=== PATIENT | female | born 1995 | race Caucasian/White ===

== ENCOUNTER 2016-02-10 00:40 | Emergency (ER) | payer OTHER ==
[~2016-02-10] VITALS: Ht 152.4 cm; Wt 53.0 kg
[~2016-02-10 00:40] MED LIST: ADVIL,NUPRIN,M200 MG PO; ATARAX,VISTARIL25 MG PO; AUGMENTIN600 MG/5 M PO; AZITHROMYCIN500 M1 PO; BACTRIM,SEPT1 TABLET PO; CIPRO500 MG PO; CLINDAMYCIN HC300 MG PO; CLOTRIM ANTIFUN15 GM TP; DEPO PROVERA; DEPO-PROVER150 MG/ML IM; ERYTHROMYCIN O3.5 GM BOTH EYES; EXCEDRIN MIGRA1 EAC2 PO; FAMOTIDINE20 MG PO; FLEXERIL10 MG PO; HUMULIN R100 UNITS/ SC; IBUPROFEN600 MG PO; JUNEL FE 1/21 TABLET PO; KEFLEX500 MG PO; LANTUS 10100 UNITS/ SC; LANTUS 3 M100 UNITS1; LANTUS 3 M100 UNITS1 SC; LEVEMIR100 UNIT/2 SC; LOESTRIN 1/21 TABLET PO; MOBIC15 MG PO; MOTRIN600 MG PO; NAPROSYN500 MG PO; NOVOLOG 10100 UNITS/ SC; NOVOLOG PE100 UNITS/; NOVOLOG PE100 UNITS/ SC; OMEPRAZOLE40 M1 PO; PHENAZOPYRIDIN200 MG PO; PREDNISONE10 MG PO; PREDNISONE20 MG PO; PROMETHAZINE HC25 M1 PO; RANITIDINE HCL150 MG PO; SERTRALINE HCL50 MG PO; SOFTCLIX1 EAC2 MC; TYLENOL EXTRA500 MG PO; ULTRAM50 MG PO; VENTOLIN HFA18 GM IH; ZANTAC150 MG PO; ZOFRAN ODT4 MG PO; ZOFRAN ODT8 MG PO; ZOFRAN4 MG PO
[2016-02-10 00:43] VITALS: BP 107/83
== END 2016-02-10 05:45 | disposition left against medical advice (07) ==
LOC: EME 00:40
DX: R06.02 Shortness of breath (principal); Z53.21 Procedure and treatment not carried out due to patient leaving prior to being seen by health care provider; R51 Headache; E10.9 Type 1 diabetes mellitus without complications; J45.909 Unspecified asthma, uncomplicated; K21.9 Gastro-esophageal reflux disease without esophagitis
CPT/HCPCS: 71020

== ENCOUNTER 2016-03-10 21:48 | Emergency (ER) | payer OTHER ==
[~2016-03-10] VITALS: Ht 160 cm; Wt 63.2 kg
[2016-03-10 22:10] LABS: POINT-OF-CARE METER ID UU13113778
[2016-03-10 22:14] LABS: ADD MIUA? YES; BILIRUBIN NEGATIVE; BLOOD NEGATIVE; COLOR YELLOW ((YELLOW)); GLUCOSE (STRIP) NEGATIVE; KETONES 15; LEUKOCYTES NEGATIVE; NITRITE NEGATIVE; PH, URINE 6.5 (5-8); PROTEIN (STRIP) TRACE; SPECIFIC GRAVITY 1.026 (1.000-1.030); UROBILINOGEN 0.2 MG/DL (0.2-1.0)
[2016-03-10 22:22] LABS: HEMATOCRIT 41.7 % (36.0-46.0); MCH 32.7 PG (29.0-34.0); MCHC 34.5 G/DL (30.0-36.0); MCV 94.8 FL (83-99); MEAN PLAT.VOLUME 9.5 uM^3 (9.5-12.4); PLATELET COUNT 313 K/uL (156-360); RBC DIS.WIDTH-CV 11.8 % (11.8-14.6); RBC DIS.WIDTH-SD 39.8 % (39-53); WHITE BLOOD COUNT 10.6 K/uL (4.1-10.2)
[2016-03-10 22:36] LABS: BACTERIA 1+ /HPF; CASTS NONE SEEN /LPF; CRYSTALS NONE SEEN; EPITHELIAL CELLS 2+ /HPF; MUCUS NONE SEEN /LPF; RED BLOOD CELLS 0-5 /HPF (0-5); UCUL ADDED? NO; WHITE BLOOD CELLS 0-5 /HPF (0-5)
[2016-03-10 22:37] LABS: CHLORIDE 105 mEq/L (99-109); POTASSIUM 4.2 mEq/L (3.7-5.4); SODIUM 139 mEq/L (136-147)
[2016-03-10 22:39] LABS: GLUCOSE 104 mg/dL (70-99)
[2016-03-10 22:40] LABS: ANION GAP 9 MEQ/L (2-14)
[2016-03-10 22:41] LABS: TOTAL BILIRUBIN 0.7 mg/dL (0.0-1.0)
[2016-03-10 22:42] LABS: ALKALINE PHOSPHATASE 78 IU/L (3-129)
[2016-03-10 22:43] LABS: GFR ESTIMATE (CALCULATED) > 59 mL/min/
[2016-03-10 22:44] LABS: UREA NITROGEN (BUN) 15 mg/dL (9-23)
[2016-03-10 22:46] LABS: LIPASE 60 U/L (1.0-51.0)
[2016-03-10 22:52] LABS: QUANTITATIVE HCG < 4.0 MIU/ML
[2016-03-10] MEDS ORDERED: ZOFRAN ODT4 MG PO (23:49)
[2016-03-11 00:56] VITALS: BP 115/70
== END 2016-03-11 00:57 | disposition home or self-care (01) ==
LOC: EME 21:48
DX: J02.0 Streptococcal pharyngitis (principal); R11.2 Nausea with vomiting, unspecified; J45.909 Unspecified asthma, uncomplicated; E10.9 Type 1 diabetes mellitus without complications; Z79.4 Long term (current) use of insulin; K21.9 Gastro-esophageal reflux disease without esophagitis
CPT/HCPCS: 80053; 81003; 82948; 83690; 84702; 85027; 99281; 99283; J1200; J1885; J2405; J7030; S0028

== ENCOUNTER 2016-04-26 21:42 | Emergency (ER) | payer OTHER ==
[~2016-04-26] VITALS: Ht 160 cm; Wt 59.8 kg
[2016-04-26 22:34] LABS: HEMATOCRIT 42.7 % (36.0-46.0); MCH 30.4 PG (29.0-34.0); MCHC 33.5 G/DL (30.0-36.0); MCV 90.7 FL (83-99); MEAN PLAT.VOLUME 9.8 uM^3 (9.5-12.4); PLATELET COUNT 321 K/uL (156-360); RBC DIS.WIDTH-CV 11.2 % (11.8-14.6); RBC DIS.WIDTH-SD 37.2 % (39-53); RED BLOOD COUNT 4.71 M/uL (3.80-5.20); WHITE BLOOD COUNT 6.9 K/uL (4.1-10.2)
[2016-04-26 22:44] LABS: CHLORIDE 105 mEq/L (99-109); POTASSIUM 3.9 mEq/L (3.7-5.4); SODIUM 138 mEq/L (136-147)
[2016-04-26 22:46] LABS: GLUCOSE 174 mg/dL (70-99)
[2016-04-26 22:47] LABS: ANION GAP 10 MEQ/L (2-14)
[2016-04-26 22:48] LABS: TOTAL BILIRUBIN 0.6 mg/dL (0.0-1.0)
[2016-04-26 22:49] LABS: ALKALINE PHOSPHATASE 69 IU/L (3-129); GFR ESTIMATE (CALCULATED) > 59 mL/min/
[2016-04-26 22:51] LABS: UREA NITROGEN (BUN) 9 mg/dL (9-23)
[2016-04-26 23:17] LABS: QUANTITATIVE HCG 20805.4 MIU/ML
[2016-04-26 23:18] LABS: BILIRUBIN NEGATIVE; BLOOD NEGATIVE; COLOR YELLOW ((YELLOW)); GLUCOSE (STRIP) 150; KETONES 5; LEUKOCYTES NEGATIVE; NITRITE NEGATIVE; PROTEIN (STRIP) NEGATIVE; SPECIFIC GRAVITY 1.013 (1.000-1.030); UROBILINOGEN 0.2 MG/DL (0.2-1.0)
[2016-04-26 23:21] LABS: ADD MIUA? NO; UCUL ADDED? NO
[2016-04-27] MEDS ORDERED: NOVOLIN,HU100 UNITS1 SC (00:39)
[2016-04-27] MEDS ORDERED: NOVOLIN N100 UNITS/ SC (00:39)
[2016-04-27 03:36] VITALS: BP 121/83
== END 2016-04-27 03:36 | disposition home or self-care (01) ==
LOC: EME 21:42
DX: O99.89 Other specified diseases and conditions complicating pregnancy, childbirth and the puerperium (principal); R10.84 Generalized abdominal pain; Z3A.01 Less than 8 weeks gestation of pregnancy; O24.011 Pre-existing type 1 diabetes mellitus, in pregnancy, first trimester; Z79.4 Long term (current) use of insulin
CPT/HCPCS: 76801; 80053; 81003; 84702; 85027; 86900; 86901; 99281; 99284

== ENCOUNTER 2016-05-26 12:33 | Emergency (ER) | payer OTHER ==
[~2016-05-26] VITALS: Ht 160 cm; Wt 55.7 kg
[~2016-05-26 12:33] MED LIST changes: +NOVOLIN N100 UNITS/ SC; +NOVOLIN,HU100 UNITS1 SC
[2016-05-26 13:13] LABS: HEMATOCRIT 43.1 % (36.0-46.0); MCH 30.2 PG (29.0-34.0); MCHC 34.8 G/DL (30.0-36.0); MCV 86.9 FL (83-99); MEAN PLAT.VOLUME 10.5 uM^3 (9.5-12.4); PLATELET COUNT 292 K/uL (156-360); RBC DIS.WIDTH-CV 11.6 % (11.8-14.6); RBC DIS.WIDTH-SD 36.8 % (39-53); RED BLOOD COUNT 4.96 M/uL (3.80-5.20); WHITE BLOOD COUNT 5.6 K/uL (4.1-10.2)
[2016-05-26 13:20] LABS: CHLORIDE 105 mEq/L (99-109); POTASSIUM 4.1 mEq/L (3.7-5.4); SODIUM 133 mEq/L (136-147)
[2016-05-26 13:22] LABS: GLUCOSE 171 mg/dL (70-99)
[2016-05-26 13:23] LABS: ANION GAP 14 MEQ/L (2-14)
[2016-05-26 13:24] LABS: TOTAL BILIRUBIN 1.4 mg/dL (0.0-1.0)
[2016-05-26 13:26] LABS: ALKALINE PHOSPHATASE 57 IU/L (3-129); GFR ESTIMATE (CALCULATED) > 59 mL/min/
[2016-05-26 13:27] LABS: UREA NITROGEN (BUN) 6 mg/dL (9-23)
[2016-05-26 13:54] LABS: QUANTITATIVE HCG 146517.5 MIU/ML
[2016-05-26 14:24] LABS: CARBON DIOXIDE (BICARBONATE) 18.1 MEQ/L (20-31)
[2016-05-26 15:09] LABS: CHLORIDE 105 mEq/L (99-109); POTASSIUM 4.2 mEq/L (3.7-5.4); SODIUM 133 mEq/L (136-147)
[2016-05-26 15:11] LABS: GLUCOSE 161 mg/dL (70-99)
[2016-05-26 15:12] LABS: ANION GAP 12 MEQ/L (2-14)
[2016-05-26 15:15] LABS: GFR ESTIMATE (CALCULATED) > 59 mL/min/; UREA NITROGEN (BUN) 6 mg/dL (9-23)
[2016-05-26] MEDS ORDERED: VITAMIN B-625 MG PO (16:10)
[2016-05-26 16:28] VITALS: BP 101/69
== END 2016-05-26 16:33 | disposition home or self-care (01) ==
LOC: EME 12:33
PROVIDERS: Emergency Medicine
DX: O21.1 Hyperemesis gravidarum with metabolic disturbance (principal); O24.011 Pre-existing type 1 diabetes mellitus, in pregnancy, first trimester; E10.9 Type 1 diabetes mellitus without complications; Z3A.10 10 weeks gestation of pregnancy; Z79.4 Long term (current) use of insulin
CPT/HCPCS: 80048 91; 80053; 81003; 82010; 82803; 83605; 84702; 85027; 99281; 99284; J2405

== ENCOUNTER 2016-09-08 11:42 | Outpatient (CLI) | payer OTHER ==
[~2016-09-08 11:42] MED LIST changes: +VITAMIN B-625 MG PO
[2016-09-08 12:14] VITALS: BP 103/64
[2016-09-08 12:48] LABS: EOSINOPHIL (%) 0.3 % (0-5); HEMATOCRIT 34.1 % (36.0-46.0); IMMATURE GRANULOCYTE (%) 1.2 % (0.0-0.7); IMMATURE GRANULOCYTE COUNT 0.1 K/uL; INSTRUMENT ABS NEUTROPHIL CT 5.1 K/uL; LYMPHOCYTE COUNT 1.7 K/uL (1.0-2.8); MCH 31.6 PG (29.0-34.0); MCHC 34.3 G/DL (30.0-36.0); MCV 92.2 FL (83-99); MEAN PLAT.VOLUME 10.8 uM^3 (9.5-12.4); MONOCYTE (%) 5.3 % (3-12); MONOCYTE COUNT 0.4 K/uL (0-0.8); NEUTROPHIL (%) 69.5 % (45-76); NEUTROPHIL COUNT 5.1 K/uL (1.8-6.4); PLATELET COUNT 218 K/uL (156-360); RBC DIS.WIDTH-CV 13.2 % (11.8-14.6); RBC DIS.WIDTH-SD 44.4 % (39-53); WHITE BLOOD COUNT 7.4 K/uL (4.1-10.2)
[2016-09-08 13:15] LABS: ANION GAP 8 MEQ/L (2-14); CHLORIDE 103 MEQ/L (99-109); POTASSIUM 3.5 MEQ/L (3.7-5.4); SAMPLE HEMOLYSIS CHECK 0; SAMPLE ICTERIC CHECK 0; SAMPLE LIPEMIA CHECK 0; SODIUM 134 MEQ/L (136-147); TOTAL BILIRUBIN 0.6 MG/DL (0.0-1.0)
[2016-09-08 13:21] LABS: ALKALINE PHOSPHATASE 52 IU/L (3-129); GFR ESTIMATE (CALCULATED) > 59 mL/min/; GLUCOSE 120 mg/dL (70-99); UREA NITROGEN (BUN) 6 mg/dL (9-23)
[2016-09-08 13:45] LABS: ADD MIUA? YES; BILIRUBIN NEGATIVE; BLOOD NEGATIVE; COLOR YELLOW ((YELLOW)); GLUCOSE (STRIP) 50; KETONES 80; LEUKOCYTES TRACE; NITRITE NEGATIVE; PROTEIN (STRIP) NEGATIVE; UROBILINOGEN 0.2 MG/DL (0.2-1.0)
[2016-09-08 13:55] LABS: BACTERIA 1+ /HPF; EPITHELIAL CELLS 3+ /HPF; MUCUS 2+ /LPF; RED BLOOD CELLS NONE SEEN /HPF (0-5); UCUL ADDED? YES
[2016-09-08 14:04] LABS: Estimated Average Glucose 123 mg/dL (70-123)
[2016-09-08 14:17] LABS: HEMOGLOBIN A1c (GLYCOHEMOGLOB) 5.9 % HGB (Below 5.7)
[2016-09-08 16:00] VITALS: BP 98/64
[2016-09-08 19:37] LABS: ADD MIUA? NO; BILIRUBIN NEGATIVE; BLOOD NEGATIVE; COLOR STRAW ((YELLOW)); GLUCOSE (STRIP) >=500; KETONES 5; LEUKOCYTES NEGATIVE; NITRITE NEGATIVE; PROTEIN (STRIP) NEGATIVE; SPECIFIC GRAVITY 1.007 (1.000-1.030); UROBILINOGEN 0.2 MG/DL (0.2-1.0)
== END 2016-09-08 20:20 | disposition home or self-care (01) ==
LOC: LDRP-OP 11:42 → 2WEST 11:43
PROVIDERS: Obstetrics & Gynecology
DX: O24.312 Unspecified pre-existing diabetes mellitus in pregnancy, second trimester (principal); E13.10 Other specified diabetes mellitus with ketoacidosis without coma; O99.352 Diseases of the nervous system complicating pregnancy, second trimester; G43.909 Migraine, unspecified, not intractable, without status migrainosus; Z3A.25 25 weeks gestation of pregnancy
CPT/HCPCS: 80053; 81003; 82948; 83036; 85025; 87086; G0378; J7120

== ENCOUNTER → 2016-10-01 | Outpatient (CLI) | payer OTHER ==
[~2016-10-01] VITALS: Ht 157.5 cm; Wt 59.5 kg
[~2016-10-01] MED LIST changes: +INSULIN PUMP MC; +PRENATAL TABLE1 EACH PO
[2016-10-01 08:10] VITALS: BP 99/63
== END | disposition home or self-care (01) ==
LOC: IVINF 07:54
DX: Z31.82 Encounter for Rh incompatibility status (principal); Z3A.28 28 weeks gestation of pregnancy
CPT/HCPCS: 96372; J2790

== ENCOUNTER 2016-10-24 10:19 | Emergency (ER) | payer OTHER ==
[~2016-10-24] VITALS: Ht 157.5 cm; Wt 61.7 kg
[2016-10-24 11:41] LABS: EOSINOPHIL (%) 0.3 % (0-5); HEMATOCRIT 37.3 % (36.0-46.0); IMMATURE GRANULOCYTE COUNT 0.1 K/uL; INSTRUMENT ABS NEUTROPHIL CT 6.4 K/uL; LYMPHOCYTE COUNT 1.8 K/uL (1.0-2.8); MCH 32.3 PG (29.0-34.0); MCHC 34.9 G/DL (30.0-36.0); MCV 92.6 FL (83-99); MEAN PLAT.VOLUME 11.2 uM^3 (9.5-12.4); MONOCYTE (%) 5.3 % (3-12); MONOCYTE COUNT 0.5 K/uL (0-0.8); NEUTROPHIL (%) 72.5 % (45-76); NEUTROPHIL COUNT 6.4 K/uL (1.8-6.4); PLATELET COUNT 206 K/uL (156-360); RBC DIS.WIDTH-CV 12.3 % (11.8-14.6); RBC DIS.WIDTH-SD 42.1 % (39-53); RED BLOOD COUNT 4.03 M/uL (3.80-5.20); WHITE BLOOD COUNT 8.8 K/uL (4.1-10.2)
[2016-10-24 12:15] LABS: ADD MIUA? YES; BILIRUBIN NEGATIVE; BLOOD NEGATIVE; COLOR YELLOW ((YELLOW)); GLUCOSE (STRIP) >=500; KETONES NEGATIVE; LEUKOCYTES MODERATE; NITRITE NEGATIVE; PROTEIN (STRIP) NEGATIVE; SPECIFIC GRAVITY 1.008 (1.000-1.030); UROBILINOGEN 0.2 MG/DL (0.2-1.0)
[2016-10-24 12:17] LABS: CHLORIDE 107 mEq/L (99-109); SODIUM 137 mEq/L (136-147)
[2016-10-24 12:18] LABS: MAGNESIUM 1.7 mg/dL (1.3-2.7)
[2016-10-24 12:20] LABS: GLUCOSE 109 mg/dL (70-99)
[2016-10-24 12:21] LABS: ANION GAP 11 MEQ/L (2-14)
[2016-10-24 12:22] LABS: TOTAL BILIRUBIN 0.4 mg/dL (0.0-1.0)
[2016-10-24 12:23] LABS: ALKALINE PHOSPHATASE 89 IU/L (3-129)
[2016-10-24 12:24] LABS: GFR ESTIMATE (CALCULATED) > 59 mL/min/
[2016-10-24 12:25] LABS: UREA NITROGEN (BUN) 5 mg/dL (9-23)
[2016-10-24 12:28] LABS: BACTERIA RARE /HPF; EPITHELIAL CELLS 2+ /HPF; MUCUS TRACE /LPF; RED BLOOD CELLS 0-5 /HPF (0-5); UCUL ADDED? YES
[2016-10-24] MEDS ORDERED: MACROBID100 MG PO (13:37)
[2016-10-24] MEDS ORDERED: ZANTAC150 MG PO (13:37)
[2016-10-24] MEDS ORDERED: ZOFRAN ODT4 MG PO (13:37)
[2016-10-24 14:14] VITALS: BP 105/65
== END 2016-10-24 14:18 | disposition home or self-care (01) ==
LOC: LDRP-OP 10:19 → EME 10:19 → LDRP-OP 10:21 → 2WEST 10:21 → EDSTATUS 10:45 → EME 14:18 → LDRP-OP 01-21 09:12
PROVIDERS: Emergency Medicine
DX: O23.43 Unspecified infection of urinary tract in pregnancy, third trimester (principal); N39.0 Urinary tract infection, site not specified; O26.893 Other specified pregnancy related conditions, third trimester; K21.9 Gastro-esophageal reflux disease without esophagitis; O24.013 Pre-existing type 1 diabetes mellitus, in pregnancy, third trimester; E10.9 Type 1 diabetes mellitus without complications; Z79.4 Long term (current) use of insulin; Z96.41 Presence of insulin pump (external) (internal); Z3A.32 32 weeks gestation of pregnancy
CPT/HCPCS: 80053; 81003; 83735; 85025; 87086; 93005; 99281; 99285; J2405; J7030; S0028

== ENCOUNTER 2016-11-10 18:24 | Outpatient (CLI) | payer OTHER ==
[~2016-11-10 18:24] MED LIST changes: +MACROBID100 MG PO
[2016-11-10 18:57] VITALS: BP 112/71
[2016-11-10 20:26] LABS: ADD MIUA? YES; BILIRUBIN NEGATIVE; BLOOD NEGATIVE; COLOR YELLOW ((YELLOW)); GLUCOSE (STRIP) >=500; KETONES NEGATIVE; LEUKOCYTES TRACE; NITRITE NEGATIVE; PROTEIN (STRIP) NEGATIVE; SPECIFIC GRAVITY 1.016 (1.000-1.030); UROBILINOGEN 0.2 MG/DL (0.2-1.0)
[2016-11-10 20:31] LABS: BACTERIA NONE SEEN /HPF; EPITHELIAL CELLS 1+ /HPF; MUCUS TRACE /LPF; RED BLOOD CELLS 0-5 /HPF (0-5); WHITE BLOOD CELLS 0-5 /HPF (0-5)
[2016-11-10 20:59] LABS: ANION GAP 5 MEQ/L (2-14); CHLORIDE 104 MEQ/L (99-109); SAMPLE HEMOLYSIS CHECK 0; SAMPLE ICTERIC CHECK 0; SAMPLE LIPEMIA CHECK 0; SODIUM 133 MEQ/L (136-147); TOTAL BILIRUBIN 0.4 MG/DL (0.0-1.0)
[2016-11-10 21:05] LABS: ALKALINE PHOSPHATASE 93 IU/L (3-129); GFR ESTIMATE (CALCULATED) > 59 mL/min/; GLUCOSE 87 mg/dL (70-99); UREA NITROGEN (BUN) 8 mg/dL (9-23)
[2016-11-10 21:12] LABS: DRSB INTERNAL CONTROL PASS; PROBE CHECK PASS; SPECIMEN PROCESSING CONTROL PASS
[2016-11-10 21:41] VITALS: BP 112/74
[2016-11-10 22:14] LABS: CANDIDA DNA PROBE NEGATIVE; GARDNERELLA DNA PROBE POSITIVE; INTERNAL CONTROL VALID? YES
[2016-11-11 13:40] LABS: CHLAMYDIA TRACHOMATIS NEGATIVE; NEISSERIA GONORRHOEAE NEGATIVE
== END 2016-11-10 21:59 | disposition home or self-care (01) ==
LOC: LDRP-OP 18:24 → 2WEST 18:26 → LDRP-OP 01-21 02:21
PROVIDERS: Midwife; Obstetrics & Gynecology
DX: O26.899 Other specified pregnancy related conditions, unspecified trimester (principal); R10.9 Unspecified abdominal pain; Z3A.00 Weeks of gestation of pregnancy not specified
CPT/HCPCS: 59025; 80053; 81003; 87081; 87480; 87491; 87510; 87591; 87653; 87660; G0378

== ENCOUNTER 2016-11-28 21:08 | Outpatient (CLI) | payer OTHER ==
[2016-11-28 21:18] VITALS: BP 122/88
[2016-11-28 21:49] LABS: POINT-OF-CARE METER ID UU13113801
== END 2016-11-28 22:48 | disposition home or self-care (01) ==
LOC: LDRP-OP 21:08 → 2WEST 21:09 → LDRP-OP 12-01 13:13
PROVIDERS: Obstetrics & Gynecology
DX: O36.8130 Decreased fetal movements, third trimester, not applicable or unspecified (principal); O24.813 Other pre-existing diabetes mellitus in pregnancy, third trimester; Z3A.36 36 weeks gestation of pregnancy
CPT/HCPCS: 59025; 82948; G0378